=== PATIENT | male | born 1940 | race Caucasian/White ===

== ENCOUNTER → 2017-01-22 | Outpatient (CLI) | payer MEDICARE | END | disposition home or self-care (01) | LOC: PCVCCLINIC 16:41 | PROVIDERS: ATTEND Internal Medicine Cardiovascular Disease | DX: I25.10 Atherosclerotic heart disease of native coronary artery without angina pectoris (principal); I51.7 Cardiomegaly; I25.5 Ischemic cardiomyopathy; I10 Essential (primary) hypertension; I71.9 Aortic aneurysm of unspecified site, without rupture; G47.33 Obstructive sleep apnea (adult) (pediatric); K21.9 Gastro-esophageal reflux disease without esophagitis; Z79.82 Long term (current) use of aspirin | CPT/HCPCS: 80061; 93005; G0463 ==

== ENCOUNTER → 2017-10-31 | Outpatient (CLI) | payer MEDICARE ==
[~2017-10-31] MED LIST: REGADENOSON 0.4 MG/5 ML DISP.SYRIN. IV
== END | disposition home or self-care (01) ==
LOC: PCVCIMAG 12:15
DX: I48.1 Persistent atrial fibrillation (principal); I10 Essential (primary) hypertension; E78.5 Hyperlipidemia, unspecified; I71.4 Abdominal aortic aneurysm, without rupture; I42.9 Cardiomyopathy, unspecified; R06.09 Other forms of dyspnea; I08.3 Combined rheumatic disorders of mitral, aortic and tricuspid valves; Z79.899 Other long term (current) drug therapy
CPT/HCPCS: 78452; 93005; 93017; 93306; A9500; G0463; J2785

== ENCOUNTER → 2017-11-12 | Outpatient (CLI) | payer MEDICARE ==
[~2017-11-12] MED LIST changes: +DIAZEPAM 10 MG TABLET.; +IOHEXOL 350 MG/ML 100 ML VIAL.; +IOHEXOL 350 MG/ML 50 ML VIAL.; +IV NORMAL SALINE 500ML BAG 500 ML; +MIDAZOLAM HCL/PF 2 MG/2 ML VIAL.; -REGADENOSON 0.4 MG/5 ML DISP.SYRIN. IV; +fentaNYL PF VIAL 100 MCG/2 ML VIAL
== END | disposition home or self-care (01) ==
LOC: PCVCINTER 11:41
DX: I25.10 Atherosclerotic heart disease of native coronary artery without angina pectoris (principal); I35.1 Nonrheumatic aortic (valve) insufficiency; I70.1 Atherosclerosis of renal artery
CPT/HCPCS: 36252; 93460; 93567; C1751; C1760; C1769; C1894; J1644; J2250; J3010; J7040; Q9967

== ENCOUNTER → 2017-12-04 | Outpatient (CLI) | payer MEDICARE ==
[~2017-12-04] MED LIST changes: +BENZOCAINE ONE 20% MUCOSAL SPRAY.; -DIAZEPAM 10 MG TABLET.; -IOHEXOL 350 MG/ML 100 ML VIAL.; -IOHEXOL 350 MG/ML 50 ML VIAL.; +IV NORMAL SALINE 1000ML BAG 1,000 ML; -IV NORMAL SALINE 500ML BAG 500 ML
== END | disposition home or self-care (01) ==
LOC: PCVCINTER 11:50
DX: I08.0 Rheumatic disorders of both mitral and aortic valves (principal); I48.91 Unspecified atrial fibrillation; I10 Essential (primary) hypertension; E78.5 Hyperlipidemia, unspecified; I25.10 Atherosclerotic heart disease of native coronary artery without angina pectoris; I70.0 Atherosclerosis of aorta; Z79.899 Other long term (current) drug therapy
CPT/HCPCS: 92960; 93312; 93325; 99152; 99153; J2250; J3010; J7030

== ENCOUNTER → 2017-12-14 | Outpatient (CLI) | payer MEDICARE | END | disposition home or self-care (01) | LOC: PCVCCLINIC 14:00 | DX: I48.0 Paroxysmal atrial fibrillation (principal); I42.8 Other cardiomyopathies; I10 Essential (primary) hypertension; I71.9 Aortic aneurysm of unspecified site, without rupture; I25.10 Atherosclerotic heart disease of native coronary artery without angina pectoris; Z79.82 Long term (current) use of aspirin; Z79.899 Other long term (current) drug therapy | CPT/HCPCS: 93005; G0463 ==

== ENCOUNTER → 2018-04-15 | Outpatient (CLI) | payer MEDICARE ==
--- NOTE | 2018-04-15 17:46 | PCVCIMAG ---
APPROVED REPORT Study performed: 04/15/2018 14:32:26 EXAM: Comprehensive 2D, Doppler, and color-flow Echocardiogram Patient Location: Echo lab Status: routine BSA: 1.99 HR: 52 bpmBP: 100/60 mmHg Rhythm: NSR Other Information Study Quality: Good Indications Atrial Fibrillation Hypertension/HDD Aortic Aneurysm, NICM 2D Dimensions IVSd: 18.38 (7-11mm) LVDd: 55.72 mm PWd: 12.63 (7-11mm)Ascending Ao: 41.65 (22-36mm) LVDs: 51.47 (25-40mm) Left Atrium: 44.12 (27-40mm) Aortic Root: 43.71 mm LV Single Plane 4CH: 51.39 % LV Single Plane 2CH: 42.34 % Biplane EF: 46.3 % Volumes Left Atrial Volume (Systole) Single Plane 4CH: 68.90 mLSingle Plane 2CH: 87.71 mL LA ESV Index: 40.00 mL/m2 Aortic Valve AoV Peak Dayday.: 1.61 m/s AO Peak Gr.: 10.34 mmHgLVOT Max P.99 mmHg LVOT Max V: 1.00 m/s AI Vmax: 4.10 m/s AI Potter: 1.96 m/s2 AI PHT: 607.88 ms Mitral Valve E/A Ratio: 0.7 MV Decel. Time: 313.45 ms MV E Max Dayday.: 0.68 m/s MV A Dayday.: 0.99 m/s TDI E/Lateral E': 11.33E/Medial E': 8.50 Medial E' Dayday.: 0.08 m/s Lateral E' Dayday.: 0.06 m/s Pulmonary Vein P Vein S: 0.48 m/sP Vein A: 0.24 m/s P Vein D: 0.21 m/sP Vein A Dur.: 69.2 msec P Vein S/D Ratio: 2.29 Tricuspid Valve TR Peak Dayday.: 2.64 m/s TR Peak Gr.: 27.77 mmHg Left Ventricle The left ventricle is normal size. There is normal LV segmental wall motion. Mild concentric left ventricular hypertrophy. Left ventricular systolic function is mildly decreased. LVEF is 40-45%. Grade I - abnormal relaxation pattern. Right Ventricle The right ventricle is normal size. The right ventricular systolic function is normal. Atria The left atrium size is normal. The right atrium size is normal. Aortic Valve The aortic valve is normal in structure. Mild to moderate aortic regurgitation. There is no aortic valvular stenosis. Mitral Valve The mitral valve is normal in structure. Mild mitral regurgitation. No evidence of mitral valve stenosis. Tricuspid Valve The tricuspid valve is normal in structure. Trace tricuspid regurgitation. Pulmonary artery pressure is 35mmHg. Pulmonic Valve The pulmonary valve is normal in structure. Trace pulmonic regurgitation. Great Vessels Aortic root is dilated. The ascending aorta is dilated measuring up to 4.4cm. IVC is normal in size and collapses >50% with inspiration. Pericardium There is no pericardial effusion. <Conclusion> The left ventricle is normal size. Mild concentric left ventricular hypertrophy. LVEF is 40-45%. Grade I - abnormal relaxation pattern. The left atrium size is normal. Mild to moderate aortic regurgitation. Mild mitral regurgitation. Trace tricuspid regurgitation. Pulmonary artery pressure is 35mmHg. Aortic root is dilated. There is no pericardial effusion.
== END | disposition home or self-care (01) ==
LOC: PCVCIMAG 14:10
PROVIDERS: ATTEND Internal Medicine Cardiovascular Disease
DX: I25.10 Atherosclerotic heart disease of native coronary artery without angina pectoris (principal); I42.8 Other cardiomyopathies; E78.5 Hyperlipidemia, unspecified; I70.1 Atherosclerosis of renal artery; I48.0 Paroxysmal atrial fibrillation; I10 Essential (primary) hypertension; I71.9 Aortic aneurysm of unspecified site, without rupture; I48.1 Persistent atrial fibrillation; Z79.899 Other long term (current) drug therapy
CPT/HCPCS: 80061; 93005; 93306; G0463

== ENCOUNTER → 2018-10-15 | Outpatient (CLI) | payer MEDICARE ==
[~2018-10-15] MED LIST changes: -BENZOCAINE ONE 20% MUCOSAL SPRAY.; -IV NORMAL SALINE 1000ML BAG 1,000 ML; -MIDAZOLAM HCL/PF 2 MG/2 ML VIAL.; +REGADENOSON 0.4 MG/5 ML DISP.SYRIN. IV ONE; -fentaNYL PF VIAL 100 MCG/2 ML VIAL
--- NOTE | 2018-10-15 13:08 | PCVCIMAG ---
APPROVED REPORT Imaging Protocol: Rest Tc-99m/Stress Tc-99m 1 day Study performed: 10/15/2018 09:19:10 Indication: CAD, PAF, Cardiomyopathy Patient Location: Out-Patient Stress Nurse: Sara Banks RN, ISIAH Solomon Tech:Prakash HudsonCHRIS Ht: 5 ft 9 in Wt: 184 lbs BSA: 1.99 m2 HR: 54 bpm BP: 152/74 mmHg BMI: 27.1 Rhythm: Sinus Bradycardia, ST and T Wave Abnormality Medical History Medical History: Age, PVD, CHF Medications: Alendronate, Amiodarone, Eliquis, ASA, Zyrtec, Lisinopril-HCTZ, Bystolic, Prilosec, Crestor Allergies: No known drug allergies Exercise History: Physically active Physical Disabilities: Pre op hip replacement Meds Held (24 hrs): Bystolic Resting Data Rest SPECT myocardial perfusion imaging was performed in supine position 45 minutes following the intravenous injection of 11.4 mCi of Tc-99m Sestamibi. Time of rest injection: 0845 Date: 10/15/2018 Administration Route: IV Administration Site: Left Hand Pharmacologic Stress Pharmacologic stress test was performed by injecting Regadenoson 0.4 mg IV push over 10-15 seconds immediately followed by the intravenous injection of 32.3 mCi of Tc-99m Sestamibi. Time of stress injection: 1000 Date: 10/15/2018 Administration Route: IV Administration Site: Left Hand Gated Stress SPECT was performed 45 minutes after stress injection. The images were gated to evaluate regional wall motion and calculate left ventricular ejection fraction. Stress Test Details Stress Test: Pharmacologic stress testing performed using 0.4 mg of regadenoson per 5 mL given IV over 10 seconds. Reason for pharmacologic stress test: hip issues. HRMax Heart Rate (APMHR): 144 bpm Resting HR: 54 bpmTarget HR (85% APMHR): 122 bpm Max HR Achieved: 87 bpm % of APMHR: 60 Recovery HR: 75 bpm BP Resting BP: 152/74 mmHg Max BP: 125/61 mmHg Recovery BP: 135/66 mmHg ECG Resting ECG: Sinus Bradycardia, nonspecific ST-T abnormalities Stress ECG: Sinus Rhythm, nonspecific ST-T abnormalities Arrhythmia: None Recovery ECG: Sinus Rhythm, nonspecific ST-T abnormalities Clinical Reason for Termination: Completed protocol Stress Symptoms: Dyspnea Exercise duration: min 55 sec Symptoms resolved with caffeine. Stress ECG Conclusion ECG: Non-ischemic Study Quality Study: Good Study Data Post stress, the left ventricular ejection was 34%.. SSS: 17 SRS: 19 SDS: 1 TID = 0.82. Perfusion No evidence of stress induced ischemia. 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 Wall Motion Moderately decreased left ventricular systolic function. Nuclear Conclusion No evidence of stress induced ischemia. 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 Post stress, the left ventricular ejection was 34%. No change since prior study dated October 2017. Interpreted by: Sen Murray MD Electronically Approved: 10/15/2018 12:59:30 <Conclusion> ECG: Non-ischemic
== END | disposition home or self-care (01) ==
LOC: PCVCIMAG 08:30
PROVIDERS: ATTEND Internal Medicine Cardiovascular Disease
DX: I25.10 Atherosclerotic heart disease of native coronary artery without angina pectoris (principal); I42.8 Other cardiomyopathies; I48.0 Paroxysmal atrial fibrillation; I50.9 Heart failure, unspecified
CPT/HCPCS: 78452; 93017; A9500; J2785